=== PATIENT | female | born 1945 | race Two or more races ===

== ENCOUNTER 2022-08-10 20:19 | Emergency (ER) | payer OTHER ==
[~2022-08-10] VITALS: Ht 157.5 cm; Wt 53.1 kg
[~2022-08-10 20:19] MED LIST: ATENOLOL100 MG PO; LASIX20 MG PO; VERAPAMIL HCL240 M1 PO; ZOCOR40 MG PO
[2022-08-10] MEDS ORDERED: LOSARTAN POTASS25 MG (20:57)
== END 2022-08-10 22:41 | disposition home or self-care (01) ==
LOC: ER 20:19
DX: M94.0 Chondrocostal junction syndrome [Tietze] (principal); Z88.0 Allergy status to penicillin; Z88.2 Allergy status to sulfonamides; I10 Essential (primary) hypertension; Z20.822 Contact with and (suspected) exposure to COVID-19